=== PATIENT | male | born 2000 | race Caucasian/White ===

== ENCOUNTER 2024-01-15 19:21 | Emergency (ER) | payer BC ==
[~2024-01-15] VITALS: Ht 182.9 cm; Wt 81.6 kg
[2024-01-15 19:58] VITALS: TEMP 97.6
[2024-01-15 20:17] LABS: BASOPHILS # (AUTO) 0.1 K/uL (0.0-0.2); BASOPHILS % (AUTO) 1.2 % (0.0-2.0); EOSINOPHILS # (AUTO) 0.5 K/uL (0.0-0.7); EOSINOPHILS % (AUTO) 5.3 % (0.0-6.0); HEMATOCRIT 50 % (39-51); LYMPHOCYTES # (AUTO) 2.9 K/uL (0.8-4.8); LYMPHOCYTES % (AUTO) 31.4 % (20.0-44.0); MEAN CORPUSCULAR HEMOGLOBIN 31 PG (26.0-33.0); MEAN CORPUSCULAR HGB CONC 34 g/dl (31.0-36.0); MEAN CORPUSCULAR VOLUME 90 fL (80-96); MONOCYTES # (AUTO) 0.8 K/uL (0.1-1.30); MONOCYTES % (AUTO) 8.2 % (2.0-12.0); NEUTROPHILS % (AUTO) 53.9 % (43.0-81.0); PLATELET COUNT (AUTO) 254 K/uL (150-450); RED BLOOD CELL COUNT(AUTO) 5.52 MIL/uL (4.5-6.0); RED CELL DISTRIBUTION WIDTH 13.3 % (11.5-15.0); WHITE BLOOD COUNT (AUTO) 9.3 K/uL (4.3-11.0)
[2024-01-15 20:35] LABS: CALCIUM, SERUM 9.5 mg/dL (8.5-10.1); CARBON DIOXIDE 25 mmol/L (21-32); CHLORIDE 103 mmol/L (98-107); CREATININE 1.1 mg/dL (0.6-1.3); GLUCOSE 98 mg/dL (74-106); POTASSIUM 4.1 mmol/L (3.5-5.1); SODIUM SERUM 137 mmol/L (136-145); UREA NITROGEN, BLOOD 21 mg/dL (7-18)
[2024-01-15 20:43] LABS: ALANINE AMINOTRANSFERASE 20 U/L (12-78); ALCOHOL, BLOOD < 3 mg/dL (0-10); ALKALINE PHOSPHATASE 92 U/L (46-116); ASPARTATE AMINOTRANSFERASE 17 U/L (15-37); BILIRUBIN,DIRECT 0.2 mg/dL (0.0-0.2); BILIRUBIN,TOTAL 0.7 mg/dL (0.2-1.0)
[2024-01-15 20:45] LABS: ACETAMINOPHEN <10 ug/ml (10-30); SALICYLATE < 0.2 mg/dL (2.8-20.0)
[2024-01-15 21:03] LABS: APPEARANCE,URINE CLEAR (CLEAR); BILIRUBIN,URINE NEGATIVE (NEGATIVE); BLOOD, URINE NEGATIVE Ery/uL (NEGATIVE); COLOR,URINE YELLOW (YELLOW); KETONES,URINE NEGATIVE (NEGATIVE); LEUKOCYTE ESTERASE ,URINE NEGATIVE (NEGATIVE); NITRITE, URINE NEGATIVE (NEGATIVE); PROTEIN,URINE NEGATIVE (NEGATIVE); UGLUCOSE NEGATIVE (NEGATIVE); UROBILINOGEN,URINE 0.2 EU/dL (0.2)
[2024-01-15 21:10] LABS: ALBUMIN 4.8 g/dL (3.4-5.0)
[2024-01-15 21:32] LABS: AMPHETAMINE, URINE NEGATIVE (NEGATIVE); BARBITURATE, URINE NEGATIVE (NEGATIVE); BENZODIAZEPINE, URINE NEGATIVE (NEGATIVE); COCCAINE, URINE NEGATIVE (NEGATIVE); OPIATE, URINE NEGATIVE (NEGATIVE); PHENCYCLIDINE SCREEN,URINE NEGATIVE (NEGATIVE)
[2024-01-15 21:34] LABS: CANNABINOID, URINE POSITIVE (NEGATIVE)
[2024-01-15 22:35] VITALS: BP 120/78; O2SAT 98
== END 2024-01-15 22:28 | disposition home or self-care (01) ==
LOC: ER 19:27
DX: U07.1 COVID-19 (principal); R07.89 Other chest pain; R06.02 Shortness of breath; I50.9 Heart failure, unspecified; J45.909 Unspecified asthma, uncomplicated; E07.9 Disorder of thyroid, unspecified; F14.10 Cocaine abuse, uncomplicated; F15.10 Other stimulant abuse, uncomplicated; Z88.5 Allergy status to narcotic agent; Z88.8 Allergy status to other drugs, medicaments and biological substances
CPT/HCPCS: 36415; 71045-TC; 80048-TC; 80076-TC; 83880; 84484-TC; 85025-TC; G0480

== ENCOUNTER 2024-02-10 21:10 | Emergency (ER) | payer BC ==
[~2024-02-10] VITALS: Ht 182.9 cm; Wt 85.7 kg
[2024-02-10 21:55] VITALS: BP 144/74; TEMP 98.1; O2SAT 99
[2024-02-10] MEDS ORDERED: predniSONE 20 MG TABLET ONE (22:36)
[2024-02-10] MEDS: predniSONE 50 MG TABLET PO ONE (22:40)
[2024-02-10] MEDS ORDERED: PRED50TA PO (23:00)
== END 2024-02-10 23:17 | disposition home or self-care (01) ==
LOC: ER 21:24
DX: R21 Rash and other nonspecific skin eruption (principal); J45.909 Unspecified asthma, uncomplicated; I50.9 Heart failure, unspecified; L30.9 Dermatitis, unspecified; E07.9 Disorder of thyroid, unspecified; F19.10 Other psychoactive substance abuse, uncomplicated; Z88.5 Allergy status to narcotic agent; Z88.8 Allergy status to other drugs, medicaments and biological substances
CPT/HCPCS: 99283; J7512

== ENCOUNTER 2024-08-04 15:06 | Emergency (ER) | payer BC, OTHER ==
[~2024-08-04] VITALS: Ht 182.9 cm; Wt 93.4 kg
[~2024-08-04 15:06] MED LIST: PRED50TA PO
[2024-08-04] MEDS ORDERED: LORAZEPAM INJ 2 MG/ML VIAL ONE (15:28)
[2024-08-04] MEDS: IV NS 0.9% 1,000 ML BAG IV ONE (15:32)
[2024-08-04] MEDS: LORAZEPAM INJ 2 MG/ML VIAL IV ONE (15:32)
[2024-08-04] MEDS ORDERED: METO25TA6 PO (16:54)
[2024-08-04 17:11] VITALS: BP 124/88; TEMP 98.2; O2SAT 98
== END 2024-08-04 17:11 | disposition home or self-care (01) ==
LOC: ER 15:10
DX: F15.10 Other stimulant abuse, uncomplicated (principal); I50.9 Heart failure, unspecified; J45.909 Unspecified asthma, uncomplicated; Z79.52 Long term (current) use of systemic steroids; Z88.5 Allergy status to narcotic agent
CPT/HCPCS: 99285; 96374; 96361; 93005; J2060; J7030